=== PATIENT | female | born 1995 | race Caucasian/White ===

== ENCOUNTER 2018-10-29 12:51 | Outpatient (CLI) | payer BC ==
--- NOTE | 2018-10-29 13:40 | CT ---
NONCONTRAST CT HEAD: 10/29/2018 HISTORY: Episodic tremors. Unable to talk. Patient with history of concussion. COMPARISON: None available. FINDINGS: There is no evidence of a hemorrhage, acute infarction, mass effect, or midline shift. The ventricul ar system is normal in size, shape, and position. The visualized paranasal sinuses and mastoid air c ells are clear. No calvarial fracture is seen. IMPRESSION: No acute intracranial abnormality is demonstrated. POS: [facility]ON[facility]
== END 2018-10-29 12:52 | disposition home or self-care (01) ==
LOC: SCSCT 12:51
PROVIDERS: ATTEND Family Medicine
DX: S09.93XA Unspecified injury of face, initial encounter (principal); R51 Headache; H53.8 Other visual disturbances
CPT/HCPCS: 70450